=== PATIENT | female | born 2000 | race Caucasian/White ===

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

== ENCOUNTER → 2021-01-31 | Outpatient (CLI) | payer MEDICAID ==
[~2021-01-31] MED LIST changes: +HYDR-4226 PO; -HYDR-757 PO
[2021-01-31 16:45] LABS: HEMOGLOBIN 13.4 g/dL (11.5-16.0); WHITE BLOOD COUNT 8.4 10^3/uL (4.3-11.0)
[2021-01-31 17:08] LABS: ALANINE AMINOTRANSFERASE 28 U/L (0-55); ALBUMIN 4.2 GM/DL (3.2-4.5); ALKALINE PHOSPHATASE 81 U/L (40-136); AMYLASE 47 U/L (25-125); BILIRUBIN,TOTAL 0.5 MG/DL (0.1-1.0); BUN/CREATININE RATIO 14; CALCIUM 9.5 MG/DL (8.5-10.1); CARBON DIOXIDE 22 MMOL/L (21-32); CHLORIDE 107 MMOL/L (98-107); CREATININE SERUM 0.88 MG/DL (0.60-1.30); GFR ESTIMATED > 60; GLUCOSE 88 MG/DL (70-105); LIPASE 27 U/L (8-78); POTASSIUM 3.8 MMOL/L (3.6-5.0); SODIUM 138 MMOL/L (135-145)
== END ==
LOC: LAB 16:22
PROVIDERS: ATTEND Pediatrics
DX: R11.2 Nausea with vomiting, unspecified (principal)
CPT/HCPCS: 36415; 80053; 82150; 83690; 85027

== ENCOUNTER → 2021-02-02 | Outpatient (CLI) | payer MEDICAID ==
--- NOTE | 2021-02-02 08:36 | Diagnostic Imaging Report ---
EXAMINATION: US Abdomen complete. TECHNIQUE: Multiple real-time grayscale images were obtained over the right upper quadrant in various projections. HISTORY: NAUSEA/VOMITTING COMPARISON: CT abdomen 09/20/2017 FINDINGS: Pancreas: The visualized portions of the pancreas are normal. Liver: Increased echogenicity of the liver and normal contour which can be seen with hepatic steatosis. No focal lesions are seen. The portal vein is patent with hepatopetal flow. Gallbladder and biliary tree: The gallbladder is surgically absent. There is no biliary ductal dilation. The common duct measures 0.5 cm. Kidneys: The right kidney is normal without hydronephrosis. The left kidney is normal without hydronephrosis. Spleen: The spleen is normal. Aorta and IVC: The visualized aorta and inferior vena cava are normal. Fluid: No ascites is seen. IMPRESSION: 1. Increased echogenicity of the liver which can be seen with hepatic steatosis. Otherwise unremarkable abdominal ultrasound. Dictated by: Dictated on workstation # [id number]
== END ==
LOC: RAD 07:30
PROVIDERS: ATTEND Pediatrics
DX: K76.89 Other specified diseases of liver (principal)
CPT/HCPCS: 76700

== ENCOUNTER 2021-10-10 09:16 | Outpatient (CLI) | payer MEDICAID ==
[~2021-10-10] VITALS: Ht 167 cm; Wt 104.0 kg
[2021-10-10 09:25] VITALS: BP 129/81
[2021-10-10] MEDS ORDERED: ACETAMINOPHEN 500 MG TAB (TYLENOL) PO PRN (09:30)
[2021-10-10] MEDS ORDERED: SOTROVIMAB 500 MG/NS 100 ML IVPB IV ONE ×2 (09:30)
[2021-10-10] MEDS ORDERED: ONDANSETRON 4 MG/2 ML (SDV) Z0FRAN IV PRN (09:30)
[2021-10-10] MEDS ORDERED: EPINEPHrine INJECTION 1 MG/ML AMP IM PRN (09:30)
[2021-10-10] MEDS ORDERED: diphenhydrAMINE 50 MG/ML INJ (BENADRYL) IV PRN (09:30)
[2021-10-10 10:45] VITALS: BP 139/92
== END 2021-10-10 10:50 ==
LOC: INFUSION 09:16
PROVIDERS: ATTEND Pediatrics
DX: U07.1 COVID-19 (principal)